=== PATIENT | male | born 1990 | race Caucasian/White ===

== ENCOUNTER 2024-04-06 09:11 | Emergency (ER) | payer MEDICAID, SELFPAY ==
[2024-04-06 09:26] VITALS: BP 144/76; PULSE 63; RESP 16; TEMP 36.6; O2SAT 99; BMI 35.4
--- NOTE | 2024-04-06 09:30 | XR_ITS ---
Examination: Lumbar spine 3 views Technique one AP lateral coned lateral lower lumbar spine 3 views Exam date and time: April 06, 2024 0954 hours INDICATIONS: Extreme lower back pain today. FINDINGS: Adequate alignment lumbar vertebral bodies No lumbar fracture No significant lumbar disc narrowing No spondylolisthesis IMPRESSION: Adequate alignment lumbar vertebral bodies. No lumbar fracture. No significant lumbar disc narrowing. Consider MRI lumbar spine without contrast follow-up
--- NOTE | 2024-04-06 09:31 | EDNOTE_ITS ---
ED Back Injury Pain RME/HPI General Chief Complaint: Back Pain/Injury Stated Complaint: Lower back pain since this morning Time Seen by Provider: 04/06/24 09:37 Source: patient Arrival date/time: 04/06/24 09:11 33-year-old male with no known medical history presents to the emergency room with a chief complaint of lower back pain that began this morning while helping his son get in the shower. Mode of arrival: ambulatory Limitations: no limitations Related Data Previous Rx's ?Medication ?Instructions ?Recorded benzonatate 150 mg capsule 150 mg PO BID PRN cough #20 caps 07/28/22 diphenhydramine HCl 25 mg capsule 25 mg PO TID PRN cou gh #20 caps 07/28/22 (Benadryl) ibuprofen 800 mg tablet 800 mg PO Q8H PRN pain #20 t abs 07/28/22 cyclobenzaprine 10 mg tablet 10 mg PO TID #14 tabs ibuprofen 600 mg tablet 600 mg PO Q8H PRN fever or p ain 04/06/24 #20 tabs Allergies Allergy/AdvReac Type Severity Reaction Status Date / Time No Known Allergies Allergy Verified 07/28/22 12:32 Review of Systems Review of Systems Systems Reviewed: All systems reviewed, normal except as documented Constitutional Constitutional: Reports system reviewed and no additional complaints, except as documented, Denies fatigue, Denies fever(s), Denies headache(s) and Denies weakness Eyes Eyes: Reports system reviewed and no additional complaints, except as documented, Denies blurry vision and Denies change in vision ENT Ears, Nose, Mouth, and Throat: Reports system reviewed and no additional complaints, except as documented, Denies otalgia, Denies headache(s), Denies nasal congestion, Denies neck pain, Denies throat swelling and Denies vertigo Cardiovascular Cardiovascular: Reports system reviewed and no additional complaints, except as documented, Denies chest pain, Denies dyspnea and Denies dyspnea on exertion Respiratory Respiratory: Reports system reviewed and no additional complaints, except as documented, Denies chest congestion, Denies cough, Denies dyspnea, Denies dyspnea on exertion and Denies wheezing Gastrointestinal Gastrointestinal: Reports system reviewed and no additional complaints, except as documented, Denies abdominal pain, Denies cramping, Denies nausea and Denies vomiting Genitourinary Genitourinary: Reports system reviewed and no additional complaints, except as documented, Denies dysuria and Denies hematuria Musculoskeletal Musculoskeletal: Reports system reviewed and no additional complaints, except as documented, Reports abnormal gait, Reports arthralgias, Reports back pain, Denies joint swelling, Denies neck pain, Denies numbness, Denies radiating pain into limb, Denies stiffness and Denies tingling Integumentary/Breasts Skin/Breast: Reports system reviewed and no additional complaints, except as documented and Denies wounds Neurologic Neurologic: Reports system reviewed and no additional complaints, except as documented, Reports abnormal gait, Denies confusion, Denies headache(s), Denies lack of coordination, Denies numbness, Denies tingling, Denies vertigo and Denies weakness Psychiatric Psychiatric: Reports system reviewed and no additional complaints, except as documented, Denies anxiety, Denies confusion, Denies depression, Denies paranoia, Denies suicidal ideation and Denies tactile hallucinations Endocrine Endocrine: Reports system reviewed and no additional complaints, except as documented and Denies fatigue Hematologic/Lymphatic Hematologic/Lymphatic: Reports system reviewed and no additional complaints, except as documented and Denies lymphadenopathy Allergic/Immunologic Allergic/Immunologic: Reports system reviewed and no additional complaints, except as documented, Denies throat swelling, Denies urticaria and Denies wheezing ED Exam General Limitations: Present no limitations General appearance: Present alert and in no apparent distress Head Head exam: Present atraumatic Eye Eye exam: Present normal appearance, PERRL and EOMI ENT ENT exam: Present normal exam, normal oropharynx and mucous membranes moist Neck Neck exam: Present normal inspection, full ROM and trachea midline Chest Chest inspection: Present normal inspection and symmetric chest wall rise Respiratory Respiratory exam: Present normal lung sounds bilaterally Cardiovascular Cardiovascular exam: Present regular rate, normal rhythm and normal heart sounds Abdominal Exam Abdominal exam: Present soft and normal bowel sounds Extremities Exam Extremities exam: Present normal inspection and full ROM Back Exam Back exam: Present normal inspection, full ROM and vertebral tenderness; Absent CVA tenderness (R) or CVA tenderness (L) Back 1 view image: 2 1. Tenderness and pain with palpation of his lumbar spine Neurological Exam Neurological exam: Present alert, oriented X3 and CN II-XII intact Expanded Neurological Exam Patient oriented to: Present person, place and time Cerebellar function: Present normal gait Motor strength - LUE: 5/5 Motor strength - RUE: 5/5 Motor strength - LLE: 5/5 Motor strength - RLE: 5/5 Spinal cord function: Present normal rectal tone; Absent saddle anesthesia or decreased rectal tone Coma scale eye opening: spontaneous Coma scale motor response: obeys commands Coma scale verbal response: oriented Coma scale total: 15 Psychiatric Psychiatric exam: Present normal affect and normal mood Skin Skin exam: Present warm, dry, intact and normal color Course Quality Measures none Orders Category Date Time Status XR lumbar spine 2-3V Stat Exams 04/06/24 09:30 Completed CYCLObenzaPRINE [Flexeril] Med 04/06/24 09:30 Discontinued 10 mg PO X1 ONE HYDROcodone*/APAP 5/325 [Max 5/325] Med 04/06/24 11:13 Discontinued 1 tab PO X1 ONE Ketorolac Inj [Toradol Inj] Med 04/06/24 09:30 Discontinued 30 mg IM X1 ONE Vital Signs Vital signs: Vital Signs Temperature 97.8 F 04/06/24 09:26 Pulse Rate 63 04/06/24 09:26 Respiratory Rate 16 04/06/24 09:26 Blood Pressure 144/76 H 04/06/24 09:26 Pulse Oximetry (%) 99 04/06/24 09:26 Oxygen Delivery Method Room Air 04/06/24 09:26 O2 saturation 99% within normal limits Back Pain / Injury MDM Narrative MDM Narrative:: 33-year-old male with no known medical history presents to the emergency room with a chief complaint of lower back pain that began this morning while helping his son get in the shower. Patient is hemodynamically stable and not toxic appearing Physical examination shows tenderness and pain with palpation to the lumbar area of the spine. There is no CVA tenderness. The patient denies any numbness to the lower extremities there is no saddle anesthesia patient is able to ambulate with pain. X-ray of the lumbar spine was completed and was negative for any acute fracture or dislocation. Patient was discharged with muscle relaxers and pain medication and educated to follow-up with primary care provider and return to the emergency room for any evidence of worsening signs or symptoms Patient data External records reviewed:: [facility] previous records Clinical information provided by:: patient Social determinants that could affect healthcare access:: none Patient has the following chronic illnesses:: No chronic illness How is presenting disease/condition affected by chronic disease/condition?: no chronic disease Evaluation data The following diagnostics were reviewed and interpreted by me:: lab results and radiology exam(s) Lab and/or radiology exams considered but not ordered:: Labs and radiology exams considered and ordered Interpretation Summary: Lumbar spine [id number]: Adequate alignment lumbar vertebral bodies No lumbar fracture No significant lumbar disc narrowing No spondylolisthesis IMPRESSION: Adequate alignment lumbar vertebral bodies. No lumbar fracture. No significant lumbar disc narrowing. Consider MRI lumbar spine without contrast follow-up Medications / Prescriptions Medications or Prescriptions considered but not ordered:: Medication given Medication administrations:: Medication Administration History Discontinued Medications Hydrocodone Bitart/Acetaminophen (Hydrocodone/Apap 5/325 Tablet) 1 tab PO X1 ONE Stop: 04/06/24 11:14 Last Admin: 04/06/24 11:26 Dose: 1 tab Documented By: Cyclobenzaprine HCl (Cyclobenzaprine 5 Mg Tablet) 10 mg PO X1 ONE Stop: 04/06/24 09:31 Last Admin: 04/06/24 09:49 Dose: 10 mg Documented By: [facility] Ketorolac Tromethamine (Ketorolac Inj 60 Mg/2 Ml Vial) 30 mg IM X1 ONE Stop: 04/06/24 09:31 Last Admin: 04/06/24 09:50 Dose: 30 mg Documented By: [facility] Medication given Consultations Consultation(s) initiated? (list below): No Diagnosis Differential diagnosis back pain/injury: lumbar radiculopathy, strain of lumbar region, thoracic back pain and discitis Most likely diagnosis given after review of the tests above:: Strain of lumbar region Admission Indicated Admission indicated?: not indicated Admission Request Was there a request for admission?: No Disposition Plan Disposition Plan: Discharge Discharge Attestation Discharge Attestation: The patient and all family members were given an opportunity to ask questions and understood the discharge instructions. Discharge instructions specifically effects, indications for sooner follow up or return to the emergency department, and the expected course of current diagnosis. Patient condition: Stable Discharge Plan Plan Patient Disposition: HOME (Self Care) Disposition Comment: Stable Prescriptions/Referrals Prescriptions/Med Rec: New cyclobenzaprine 10 mg tablet 10 mg PO TID Qty: 14 0RF ibuprofen 600 mg tablet 600 mg PO Q8H PRN (Reason: fever or pain) Qty: 20 0RF No Action diphenhydramine HCl [Benadryl] 25 mg capsule 25 mg PO TID PRN (Reason: cough) Qty: 20 0RF ibuprofen 800 mg tablet 800 mg PO Q8H PRN (Reason: pain) Qty: 20 0RF benzonatate 150 mg capsule 150 mg PO BID PRN (Reason: cough) Qty: 20 0RF Referrals: Lio Del Angel MD [Primary Care Provider] - In 1 week Problem List Clinical Impression: Strain of lumbar region Patient/Caregiver Discharge Instructions Education Materials: Treating?Strains and Sprains, Lumbar Extension (Flexibility), ED Back Sprain/Strain Additional Instructions: Please follow-up with your primary care provider in the next 24 to 48 hours. Muscle relaxers and pain medication was sent to your pharmacy please pick it up and take it as indicated. X-rays were completed and were negative for any acute fractures this is a sprain of your lumbar area. For any evidence of worsening signs or symptoms return to the emergency room immediately Print Language: Nauruan Stand Alone Forms: Chiara Award Info., Work/School Release, Patient Portal Info Letter PA/KANWAL Supervising Physician PA/KANWAL Supervising Physician: Dr. Jewell
[2024-04-06] MEDS: CYCLObenzaPRINE 5 MG TABLET 10 MG PO (09:49)
[2024-04-06] MEDS: KETOROLAC INJ 60 MG/2 ML VIAL 30 MG IM (09:50)
[2024-04-06] MEDS: HYDROcodone/APAP 5/325 TABLET 1 TAB PO (11:26)
== END 2024-04-06 12:54 | disposition home or self-care (01) ==
PROVIDERS: Emergency Provider Emergency Medicine; PCP Family Medicine
DX: S39.012A Strain of muscle, fascia and tendon of lower back, initial encounter (principal); X58.XXXA Exposure to other specified factors, initial encounter
CPT/HCPCS: 72100; 96372; 99283; J1885; A9270